=== PATIENT | male | born 1995 | race Caucasian/White ===

== ENCOUNTER 2021-07-24 00:15 | Emergency (ER) | payer MEDICAID, SELFPAY ==
[2021-07-24 00:16] VITALS: BP 174/114; PULSE 101; RESP 17; TEMP 37.3; O2SAT 96; BMI 27.4
--- NOTE | 2021-07-24 00:25 | EDS_ITS ---
HPI History of Present Illness HPI Narrative: Patient presents with right ankle injury that occurred earlier tonight. Patient states his tripped and fell and landed on his right ankle. Patient states the pain is worse over the lateral aspect of his right ankle. Patient states pain is worse with any weightbearing. Patient states it is better with rest. Patient states his pain is sharp whenever he tries to bear weight. Patient denies any paresthesias or weakness. Patient denies any other injuries. Patient denies any pain over the fifth metatarsal or proximal fibula. Chief Complaint: Lower Extremity Injury Informant: patient Occured/Mechanism Mechanism/Context: Yes direct blow Onset/Context/Timing Onset: Today Context: Sudden Onset Timing: Continuous Quality of Pain: Sharp Location: Right ankle Worsened by: Weightbearing Relieved by: Rest Associated Symptoms Associated Symptoms: Negative for Parasthesia, Weakness and Loss of Funtion PFSH PFSH Medical History no medical history no medical history Allergy/AdvReac Type Severity Reaction Status Date / Time No Known Allergies Allergy Verified 07/24/21 00:32 Surgical History no surgical history no surgical history Social History Smoking Status: Current every day smoker tobacco type: e-cigarettes ROS ROS ED Constitutional Constitutional ED: Denies chills or fever(s) Eyes Eyes: Denies blurry vision or change in vision ENT ENT ED: Denies rhinorrhea or sore throat Cardiovascular Cardiovascular: Denies chest pain or palpitations Respiratory/Chest Respiratory/Chest: Denies cough or dyspnea Gastrointestinal Gastrointestinal: Denies nausea or vomiting Genitourinary Genitourinary ED: Denies dysuria or hematuria Musculoskeletal Musculoskeletal: Denies back pain or neck pain Integumentary Denies abscess or rash Neurologic Neurologic: Denies headache(s) or weakness Allergic/Immunologic Allergic/Immunologic ED: Denies mouth swelling or urticaria EXAM Physical Exam Const Vital Signs: 07/24/21 00:16 07/24/21 03:16 07/24/21 04:45 Temperature 99.1 F Temperature Source Oral Pulse Rate 101 H 83 Respiratory Rate 17 17 18 Blood Pressure 174/114 H 131/87 H Blood Pressure Mean 134 101 Pulse Ox 96 98 Oxygen Delivery Method Room Air Room Air Room Air Positive well nourished and well developed General Appearance ED: well developed and NAD HEENT normocephalic and atraumatic Neck full ROM Extremity Extremity Narrative: There is tenderness, edema, and ecchymosis over the lateral aspect of the right ankle. There is no obvious deformity. Range of motion was limited in all motions of the right ankle secondary to pain. Sensation was intact to light touch in all digits. Pedal pulses are equal bilaterally. There is no tenderness over the fifth metatarsal or proximal fibula. Neuro oriented x3, CN's II-XII intact bilaterally, moves all extremities and no sensory deficits noted Sensorium / Orientation: alert Motor Exam: strength 5/5 throughout Psych mental status grossly normal MDM MDM MDM Narrative Medical decision making narrative: Patient was given a dose of [place] here. X- rays of the right ankle were obtained. There are 3 views. On my interpretation, there is nondisplaced fracture of the distal fibula. There is some soft tissue swelling. Radiologist also interpreted the x-rays and agrees. Patient was placed in a walking boot. Patient was given a prescription for a short course of [place]. On reevaluation, patient told railroad police officer that he was having thoughts of harming himself. Apparently his girlfriend called the police because he texted her that he was going to cut himself with a razor blade. Patient did have a pocket knife on him. Patient states he has not been sleeping well recently because of a new born child. Patient does not follow with a counselor at the present time. Because of this, basic labs will be obtained. Patient will be pink slipped. Crisis evaluated the patient. They feel the patient is safe to go home with a safety plan. They will attempt to arrange for counseling in [place] where he is from. They will follow-up with him as an outpatient. Patient understood and was agreeable with the plan. All questions were answered. Lab Data Attestation: I reviewed the patient's lab results. Labs: Laboratory Results - last 24 hr 07/24/21 07/24/21 07/24/21 01:11 01:11 01:11 WBC 11.3 H RBC 5.13 Hgb 15.9 Hct 44.6 MCV 86.9 MCH 31.0 MCHC 35.7 RDW Std Deviation 38.2 RDW Coeff of Carlos A 12.0 Plt Count 233 MPV 11.9 Immature Gran % (Auto) 0.600 Neut % (Auto) 78.4 H Lymph % (Auto) 14.1 L [place] % (Auto) 5.8 Eos % (Auto) 0.6 Baso % (Auto) 0.5 Absolute Neuts (auto) 8.9 H Absolute Lymphs (auto) 1.60 Nucleated RBC % 0 Sodium 143 Potassium 3.9 Chloride 112 H Carbon Dioxide 26.0 Anion Gap 5 BUN 8 Creatinine 1.08 Estim Creat Clear Calc 116.11 Est GFR (MDRD) Af Amer 105 Est GFR (MDRD) Non-Af 87 BUN/Creatinine Ratio 7.4 L Glucose 108 H Calcium 9.0 Urine Opiates Screen Urine Methadone Screen Ur Barbiturates Screen Ur Phencyclidine Scrn Ur Amphetamines Screen MDMA (Ecstasy) Screen U Benzodiazepines Scrn Urine Cocaine Screen U Cannabinoids Screen Ur Drug Screen Comment Ethyl Alcohol < 3.0 07/24/21 02:05 WBC RBC Hgb Hct MCV MCH MCHC RDW Std Deviation RDW Coeff of Carlos A Plt Count MPV Immature Gran % (Auto) Neut % (Auto) Lymph % (Auto) Gaston % (Auto) Eos % (Auto) Baso % (Auto) Absolute Neuts (auto) Absolute Lymphs (auto) Nucleated RBC % Sodium Potassium Chloride Carbon Dioxide Anion Gap BUN Creatinine Estim Creat Clear Calc Est GFR (MDRD) Af Amer Est GFR (MDRD) Non-Af BUN/Creatinine Ratio Glucose Calcium Urine Opiates Screen POSITIVE H Urine Methadone Screen NEGATIVE Ur Barbiturates Screen NEGATIVE Ur Phencyclidine Scrn NEGATIVE Ur Amphetamines Screen NEGATIVE MDMA (Ecstasy) Screen NEGATIVE U Benzodiazepines Scrn NEGATIVE Urine Cocaine Screen NEGATIVE U Cannabinoids Screen NEGATIVE Ur Drug Screen Comment Ethyl Alcohol Radiography Diagnostic Testing: Clinical Impression(s) from Imaging Studies Ankle X-Ray 07/24/21 00:30 IMPRESSION: Acute minimally displaced distal fibular fracture. Electronically Signed: Rubi Hsu MD at 3:16 EDT , Discharge Plan Triage Chief Complaint: Lower Extremity Injury ED Provider: Pablito Molina Dx/Rx/DC Orders Clinical Impression: Closed fracture of distal end of right fibula, Depression Instructions: ED Depression, ED Ankle Fracture, Distal Fibula Primary Care Provider: Care Physician,No Primary Referrals: Counseling,Center [GROUP OF PHYSICIANS] - 3-5 Days Jasson Vaughn DO [STAFF PHYSICIAN] - 5-7 Days Care Physician,No Primary [Primary Care Provider] - Disposition Disposition: Home, Self Care
[2021-07-24] MEDS: HYDROcodone Bitartrate/Apap 5/325 Tablet PO (00:30)
--- NOTE | 2021-07-24 00:30 | RAD_ITS ---
STUDY: X-RAY - RIGHT ANKLE REASON FOR EXAM: Male, 26 years old. Injury/Pain TECHNIQUE: 3 view(s) of the ankle. COMPARISON: None. FINDINGS: BONES: Acute oblique fracture distal fibula minimal dorsal displacement of the distal fragment. JOINTS: No dislocation. SOFT TISSUES: Marked soft tissue swelling overlying the lateral malleolus and anteriorly. RAD/Ankle min 3 Views IMPRESSION: Acute minimally displaced distal fibular fracture. Electronically Signed: Rubi Hsu MD at 3:16 EDT ,
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
[2021-07-24 01:26] LABS: Absolute Neutrophil Count 8.9 X10^3/uL (2.0-7.7); Basophil# 0.06 X10^3/uL; Basophil% 0.5 % (0-1); Eosinophil# 0.07 X10^3/uL; Eosinophils% 0.6 % (0-5); Hematocrit 44.6 % (40-54); Hemoglobin 15.9 g/dL (13.0-16.5); Lymphocyte % 14.1 % (19-41); Mean Corp Hgb Conc 35.7 g/dL (32-36); Mean Corpuscular Volume 86.9 fL (80-94); Mean Platelet Vol. 11.9 fl (6.2-12.0); Monocyte# 0.66 X10^3/uL; Monocyte% 5.8 % (0-10); NRBC Flagged by Analyzer 0 % (0-5); Neutrophil # 8.87 X10^3/uL (2.7-7.7); Neutrophil % 78.4 % (47-70); Platelet Count 233 K/mm3 (150-450); RBC Distribution Width SD 38.2 fl (35.1-43.9); Red Blood Count 5.13 M/mm3 (4.6-6.2); White Blood Count 11.3 K/mm3 (4.4-11.0)
[2021-07-24 01:39] LABS: Anion Gap 5 (5-15); BUN 8 mg/dL (7-18); BUN/Creat Ratio 7.4 RATIO (10-20); Chloride 112 mmol/L (98-107); Creatinine, Serum 1.08 mg/dL (0.70-1.30); EST Glomerular Filtration Rate 87 mL/min (>60); Est Glom Filt Rate - Afr Amer 105 mL/min (>60); Estimated Creatinine Clearance 116.11 ml/min; Glucose 108 mg/dL (74-106); Potassium 3.9 mmol/L (3.5-5.1); Sodium Level 143 mmol/L (136-145)
[2021-07-24 01:54] LABS: Alcohol, Blood (Medical)-Serum < 3.0 mg/dL
--- NOTE | 2021-07-24 03:05 | NURSING ---
CALLED CRISIS AT [phone]
[2021-07-24 03:15] LABS: Amphetamine Urine VISTA NEGATIVE (<1000 ng/mL); Barbiturate Urine VISTA NEGATIVE (< 200 ng/mL); Benzodiazepine Urine VISTA NEGATIVE (< 200 ng/mL); Cocaine Urine VISTA NEGATIVE (< 300 ng/mL); Ecstacy Urine VISTA NEGATIVE (< 500 ng/mL); Methadone Urine VISTA NEGATIVE (< 300 ng/mL); PCP Urine VISTA NEGATIVE (< 25 ng/mL); THC Urine VISTA NEGATIVE (< 50 ng/mL); Vista UDS pH Range 6
[2021-07-24 03:16] VITALS: RESP 17
[2021-07-24 04:45] VITALS: BP 131/87; PULSE 83; RESP 18; O2SAT 98
== END 2021-07-24 05:16 | disposition home or self-care (01) ==
PROVIDERS: Emergency Provider Emergency Medicine; Visit Provider Emergency Medicine
DX: S82.831A Other fracture of upper and lower end of right fibula, initial encounter for closed fracture (principal); F32.A Depression, unspecified; F17.290 Nicotine dependence, other tobacco product, uncomplicated; W19.XXXA Unspecified fall, initial encounter
CPT/HCPCS: 36415; 73610; 80048; 80307; 82077; 85025; 87811; 99284